=== PATIENT | female | born 1975 | race Caucasian/White ===

== ENCOUNTER 2017-02-19 16:30 | Emergency (ER) | payer SELFPAY ==
[~2017-02-19] VITALS: Ht 157.5 cm; Wt 77.3 kg
[2017-02-19 16:35] VITALS: BP 150/92; PULSE 73; RESP 18; TEMP 98.4; O2SAT 97
--- NOTE | 2017-02-19 16:56 | PD ---
HPI Chief Complaint: Complaint Time Seen by Provider: 16:49 Travel History International Travel<30 days: No Contact w/Intl Traveler<30days: No Traveled to known affect area: No History of Present Illness HPI This patient complains of hematuria. Duration one day. Severity of symptoms is mild. She is not having flank pain or presyncopal symptoms. No fever. She does have history of multiple kidney stones but has had urinary infections as well. Patient has run out of her medications, has no local physician at this time [facility] Past Medical History Cardiovascular Problems: Yes Coronary Artery Disease: Yes Kidney Stones: Yes Respiratory: Yes Renal Failure: Yes Thyroid Disease: Yes Influenza Vaccination: Yes ?: Not Past Surgical History Cholecystectomy: Yes Coronary Stent: Yes Genitourinary Surgery: Yes (URETERAL STENTS) Hysterectomy: Yes Social History Alcohol Use: Yes (RARE) Tobacco Use: No Substance Use: No Allergies-Medications (Allergen,Severity, Reaction): Coded Allergies: Sulfa (Sulfonamide Antibiotics) (Verified Allergy, Severe, Hives, 02/19/17 ) Reported Meds & Prescriptions Reported Meds & Active Scripts Active No Active Prescriptions or Reported Medications Review of Systems General / Constitutional: No: Fever Eyes: No: Visual changes HENT: No: Headaches Cardiovascular: No: Chest Pain or Discomfort Respiratory: No: Shortness of Breath Gastrointestinal: No: Abdominal Pain Genitourinary: Positive: Hematuria, No: Dysuria Musculoskeletal: No: Pain Skin: No Rash Neurologic: No: Weakness Psychiatric: No: Depression Endocrine: No: Polydipsia Hematologic/Lymphatic: No: Easy Bruising Physical Exam Narrative GENERAL: Well-nourished, well-developed patient in no apparent distress. SKIN: Focused skin assessment reveals no rash and nodules. Skin is Warm and dry. HEAD: Atraumatic. Normocephalic. EYES: Pupils equal and round. No scleral icterus. No injection or drainage. ENT: No nasal bleeding or discharge. Mucous membranes pink and moist. NECK: Trachea midline. No JVD. CARDIOVASCULAR: Regular rate and rhythm. No murmur appreciated. RESPIRATORY: No accessory muscle use. Clear to auscultation. Breath sounds equal bilaterally. GASTROINTESTINAL: Abdomen soft, non-tender, nondistended. Hepatic and splenic margins not palpable. MUSCULOSKELETAL: No obvious deformities. No clubbing. No cyanosis. No edema. NEUROLOGICAL: Awake and alert. No obvious cranial nerve deficits. Motor grossly within normal limits. Normal speech. PSYCHIATRIC: Appropriate mood and affect; insight and judgment normal. Data Data Last Documented VS Vital Signs Date Time Temp Pulse Resp B/P (MAP) Pulse Ox O2 Delivery O2 Flow Rate FiO2 02/19/17 16:35 98.4 73 18 150/92 (111) 97 Orders Orders Urinalysis - C+S If Indicated (02/19/17 16:54) Urine Culture (02/19/17 16:59) Labs Laboratory Tests Test 02/19/17 16:59 Urine Collection Type CLEAN CATCH Urine Color YELLOW Urine Turbidity MARKED Urine pH 6.0 Urine Specific [place] 1.012 Urine Protein 30 mg/dL Urine Glucose (UA) NEG mg/dL Urine Ketones NEG mg/dL Urine Occult Blood LARGE Urine Nitrite NEG Urine Bilirubin NEG Urine Leukocyte Esterase NEG Urine RBC INNUM /hpf Urine WBC 25-49 /hpf Urine Squamous Epithelial Cells > 8 /hpf Urine Bacteria FEW /hpf Microscopic Urinalysis Comment CULTURE INDICATED Urine Collection Time 16:59 [facility] Medical Decision Making Medical Screen Exam Complete: Yes Emergency Medical Condition: Yes Medical Record Reviewed: Yes Differential Diagnosis Cystitis, pyelonephritis, kidney stone Narrative Course I have reviewed the patient's electronic medical record. Urinalysis has a lot of hematuria. It will be cultured but I'm not suspicious of infection as the cause Recommended urology follow-up. Diagnosis Primary Impression: Hematuria Qualified Codes: R31.9 - Hematuria, unspecified Additional Instructions: Follow up with urologist Med/Other Pt SpecificInfo: Other Scripts No Active Prescriptions or Reported Meds Disposition: 01 DISCHARGE HOME Condition: Stable Davis Gaytan MD Feb 19, 2017 16:56
[2017-02-19 17:08] LABS: BLOOD, URINE LARGE (NEG); GLUCOSE,URINE NEG (NEG); KETONE, URINE NEG (NEG); NITRITE,URINE NEG (NEG)
[2017-02-19 17:12] LABS: METHOD OF COLLECTION CLEAN CATCH
[2017-02-19 17:13] LABS: RBC, URINE INNUM /hpf (0-3); SQUAMOUS EPITHELIAL CELL URINE > 8 /hpf (0-5); URINE COLOR YELLOW (YELLW/STRAW)
[2017-02-19 17:14] LABS: BACTERIA, URINE FEW /hpf; COMMENT (UR) CULTURE INDICATED; CULTURE IF INDICATED CULTURE INDICATED
== END 2017-02-19 18:41 | disposition home or self-care (01) ==
LOC: PHED 16:30
DX: R31.9 Hematuria, unspecified (principal); I25.10 Atherosclerotic heart disease of native coronary artery without angina pectoris; Z87.442 Personal history of urinary calculi; Z88.2 Allergy status to sulfonamides
CPT/HCPCS: 81001; 87086; 99283